=== PATIENT | male | born 2005 | race Two or more races ===

== ENCOUNTER 2025-02-08 17:52 | Emergency (ER) | payer OTHER ==
[~2025-02-08] VITALS: Ht 170.2 cm; Wt 74.8 kg
[2025-02-08] MEDS: ONDANSETRON 4 MG TAB.RAPDIS SL ONE (19:53)
[2025-02-08 19:56] LABS: PLATELET COUNT (AUTO) 338 K/uL (150-450); RED BLOOD CELL COUNT(AUTO) 5.45 MIL/uL (4.5-6.0); RED CELL DISTRIBUTION WIDTH 13.1 % (11.5-15.0); WHITE BLOOD COUNT (AUTO) 12.5 K/uL (4.3-11.0)
[2025-02-08 20:08] LABS: ASPARTATE AMINOTRANSFERASE 13.0 U/L (15-37); CALCIUM, SERUM 9.0 mg/dL (8.5-10.1); CREATININE 0.7 mg/dL (0.6-1.3); SODIUM SERUM 140.0 mmol/L (136-145); TOTAL PROTEIN, SERUM 8.1 g/dL (6.4-8.2); UREA NITROGEN, BLOOD 11.0 mg/dL (7-18)
[2025-02-08] MEDS ORDERED: FAMOTIDINE (20 MG) 20 MG TABLET ONE (21:10)
[2025-02-08] MEDS: FAMOTIDINE (20 MG) 20 MG TABLET PO ONE (21:11)
[2025-02-08] MEDS ORDERED: FAMO20TA80 PO (21:23)
[2025-02-08] MEDS ORDERED: ONDA4TAB5 PO (21:23)
[2025-02-08 21:30] VITALS: BP 119/63; TEMP 98.3; O2SAT 98
== END 2025-02-08 21:30 | disposition home or self-care (01) ==
LOC: ER 17:53
DX: K29.70 Gastritis, unspecified, without bleeding (principal); R11.2 Nausea with vomiting, unspecified; R10.13 Epigastric pain; R19.7 Diarrhea, unspecified
CPT/HCPCS: 36415; 76705-TC; 80053-TC; 83690-TC; 85025-TC